=== PATIENT | female | born 1980 | race Caucasian/White ===

== ENCOUNTER → 2017-01-14 | Outpatient (CLI) | payer MEDICAID ==
[~2017-01-14] MED LIST: AUGMENTIN 875 M1 TAB PO; BUSPAR 10MG TAB10 MG PO; CELEXA20 M1 PO; ETODOLAC400 MG PO; HYDROCODONE1 TABLET PO; KEFLEX 500MG.500 MG PO; LEVSIN0.125 MG PO; MEDROL 4MG. DOSE4 MG PO; METOPROLOL SUCC50 M1 PO; PROZAC40 MG PO; TRAZODONE 50MG50 MG PO; ULTRAM50 MG PO; VICODIN 5/500 T1 TAB PO; ZOFRAN4 MG PO
[2017-01-14 14:08] LABS: HEMOGLOBIN 14.3 g/dL (12.2-16.2); LYMPH # 2.1 K/mm3 (0.7-4.5); LYMPH % 24.5 % (10-50.0)
[2017-01-14 15:32] LABS: BUN 9 mg/dL (7-18)
[2017-01-14 15:36] LABS: GFR (ESTIMATED) 81 ML/MIN (59-)
[2017-01-15 08:42] LABS: HIV Screen 4th Generation wRfx Non Reactive (Non Reactive)
[2017-01-15 09:37] LABS: Vitamin D, 25-Hydroxy 25.9 ng/mL (30.0-100.0)
[2017-01-15 12:36] LABS: HBsAg Screen Negative (Negative); Hep A Ab, IgM Negative (Negative); Hep B Core Ab, IgM Negative (Negative); Hep C Virus Ab <0.1 (0.0-0.9)
[2017-01-16 10:37] LABS: Neisseria gonorrhoeae, NAA Negative (Negative)
== END ==
LOC: LAB 13:43
PROVIDERS: Nurse Practitioner Family
DX: R53.82 Chronic fatigue, unspecified (principal); Z00.00 Encounter for general adult medical examination without abnormal findings
CPT/HCPCS: G0432